=== PATIENT | female | born 1975 | race African-American/Black ===

== ENCOUNTER 2016-10-27 16:32 | Emergency (ER) | payer SELFPAY ==
[~2016-10-27] VITALS: Ht 154.9 cm; Wt 82.0 kg
[~2016-10-27 16:32] MED LIST: RANI150C PO
[2016-10-27 16:33] VITALS: BP 130/78; PULSE 90; RESP 16; TEMP 97.8; O2SAT 98
[2016-10-27] MEDS ORDERED: ACETAMINOPHEN 500 MG CPLT PO ONE (17:30)
[2016-10-27] MEDS ORDERED: EXTR500C PO (18:13)
[2016-10-27] MEDS ORDERED: IBUP-232 PO (18:13)
--- NOTE | 2016-10-27 18:19 | PD ---
HPI Chief Complaint: Injury Time Seen by Provider: 17:00 Travel History International Travel<30 days: No Contact w/Intl Traveler<30days: No Traveled to known affect area: No History of Present Illness HPI 41-year-old female presents to the emergency Department with a knee, swelling, and bruising to the right great toe after getting a call into the carpet while running to her house last evening. Patient states it feels like it got pulled backwards and sideways at the time. Patient went to work and worked all day today but has increasing pain and swelling at this time. There is no open wound or abrasion. There is swelling. Patient denies other injury. She is allergic to shellfish and penicillin. [facility] Past Medical History Diminished Hearing: No ?: Not Past Surgical History Section: Yes Social History Alcohol Use: No Tobacco Use: Yes Substance Use: No Allergies-Medications (Allergen,Severity, Reaction): Coded Allergies: Penicillin (Verified Allergy, Severe, SWELLING, 10/27/16) Shellfish (Verified Allergy, Intermediate, Anaphylaxis, 10/27/16) Reported Meds & Prescriptions Reported Meds & Active Scripts Active Acetaminophen Extra Strength (Acetaminophen) 500 Mg Cap 1,000 Mg PO Q6H PRN Ibuprofen 600 Mg Tab 600 Mg PO Q6H PRN Review of Systems Except as stated in HPI: all other systems reviewed are Neg General / Constitutional: No: Fever Eyes: No: Visual changes HENT: No: Headaches Cardiovascular: No: Chest Pain or Discomfort Respiratory: No: Shortness of Breath Gastrointestinal: No: Abdominal Pain Genitourinary: No: Dysuria Musculoskeletal: No: Pain Skin: No Rash Neurologic: No: Weakness Psychiatric: No: Depression Endocrine: No: Polydipsia Hematologic/Lymphatic: No: Easy Bruising Physical Exam Narrative GENERAL: Patient appears in mild distress. SKIN: Warm and dry. Normal color. Normal turgor. Patient has ecchymosis to the right great toe and MIP joint on the right. There is no obvious dislocation or deformity. There is moderate swelling. The nail is intact HEAD: Atraumatic. Normocephalic. EYES: Pupils equal and round. No scleral icterus. No injection or drainage. ENT: No nasal bleeding or discharge. Mucous membranes pink and moist. NECK: Trachea midline. No JVD. CARDIOVASCULAR: Regular rate and rhythm. RESPIRATORY: No accessory muscle use. Clear to auscultation. Breath sounds equal bilaterally. GASTROINTESTINAL: Abdomen soft, non-tender, nondistended. Hepatic and splenic margins not palpable. MUSCULOSKELETAL: Extremities without clubbing, cyanosis, or edema. No obvious deformities. Right great toe is tender with palpation and motion. No other significant findings. NEUROLOGICAL: Awake and alert. No obvious cranial nerve deficits. Motor grossly within normal limits. Five out of 5 muscle strength in the arms and legs. Normal speech. PSYCHIATRIC: Appropriate mood and affect; insight and judgment normal. Data Data Last Documented VS Vital Signs Date Time Temp Pulse Resp B/P Pulse Ox O2 Delivery O2 Flow Rate FiO2 10/27/16 16:33 97.8 90 16 130/78 98 Orders Foot, Complete ([id number]) (10/27/16 17:22) Ice/Cold Pack (10/27/16 17:22) Acetaminophen (Tylenol) (10/27/16 17:30) Splint Or Brace Apply/Monitor (10/27/16 18:12) [facility] Medical Decision Making Medical Screen Exam Complete: Yes Emergency Medical Condition: Yes Differential Diagnosis Right great toe sprain. Right great toe fracture. Right great toe dislocation. Narrative Course Patient is medically stable at time of exam. Patient is given 800 mg ibuprofen by mouth. X-ray of the right great toe was ordered. X-rays negative for fracture or dislocation per radiologist. She is placed in a postop shoe. Patient is to ice and elevate this area as much as possible. She is given ibuprofen 600 mg 4 times a day #40. Patient is also given Tylenol 500 mg 2 tabs every 6 hours #60. Patient is given a work note for the next 2 days. Patient is to follow up if symptoms do not continue to improve or worsen. Diagnosis Primary Impression: Sprain of right great toe Qualified Code: S93.501A - Sprain of right great toe, initial encounter Referrals: Primary Care Physician Patient Instructions: General Instructions Departure Forms: Work Release Enter return to work date: Oct 29, 2016 Additional Instructions: X-rays negative for fracture or dislocation per radiologist. She is placed in a postop shoe. Patient is to ice and elevate this area as much as possible. She is given ibuprofen 600 mg 4 times a day #40. Patient is also given Tylenol 500 mg 2 tabs every 6 hours #60. Patient is given a work note for the next 2 days. Patient is to follow up if symptoms do not continue to improve or worsen. Med/Other Pt SpecificInfo: Prescription(s) given Scripts Acetaminophen (Acetaminophen Extra Strength)500 Mg Cap1,000 Mg PO Q6H PRN (PAIN SCALE 4 TO 10) #60 CAP Ref 1 Prov:Marc Boyd MD 10/27/16 Ibuprofen 600 Mg Aej297 Mg PO Q6H PRN (Pain/Inflammation) #40 TAB Prov:Marc Boyd MD 10/27/16 Disposition: 01 DISCHARGE HOME Condition: Stable Carl Mckeon Oct 27, 2016 18:19
--- NOTE | 2016-10-27 18:57 | RADRPT ---
EXAM DATE/TIME: 10/27/2016 17:38 [place] COMPARISON: No previous studies available for comparison. INDICATIONS : Right foot pain from fall. MEDICAL HISTORY : None. SURGICAL HISTORY : Surgery about 29 years ago for rebuilding her arch due to flat feet. ENCOUNTER: Initial ACUITY: 2 days PAIN SCORE: 10/10 LOCATION: anterior great toe. FINDINGS: Three view examination of the right foot demonstrates no soft tissue swelling, dislocation, or fractu re. The tarsal bones appear intact. The interphalangeal and metatarsophalangeal joints are intact. The calcaneus is intact. Bony mineralization is normal. CONCLUSION: 1. No acute findings. Charles Mcelroy MD on October 27, 2016 at 18:53 Board Certified Radiologist. This report was verified electronically.
== END 2016-10-27 18:33 | disposition home or self-care (01) ==
LOC: NEPB 16:32
DX: S93.501A Unspecified sprain of right great toe, initial encounter (principal); X50.0XXA Overexertion from strenuous movement or load, initial encounter; Y93.02 Activity, running; Y92.009 Unspecified place in unspecified non-institutional (private) residence as the place of occurrence of the external cause
CPT/HCPCS: 73630; 99283; L3260